=== PATIENT | female | born 1965 | race Two or more races ===

== ENCOUNTER → 2016-11-28 | Outpatient (CLI) | payer BC ==
--- NOTE | ~2016-11-28 | US85 ---
[facility] A Service of [facility] / [facility] RADIOLOGY TEXT RESULTS PATIENT: JEFFERY BRAY LOCATION: SNIV : 67 UNIT #: [id number] AGE: [address]: PEG FLANNERY APRN SEX: F ORDER DR: [id number] [address] [address] [id number] O MR#: [id number] Acc #: [id number] NAME: JEFFERY BRAY : 1965 SEX: F STUDY DATE/TIME: 11/28/2016 10:54 UNIT: SNIV ROOM: STUDY DESCRIPTION: [facility] Attending Physician: Rochelle Flannery M.D. Referring Physician: Rochelle Flannery M.D. Ordering Physician: Rochelle Flannery M.D. Primary Care Physician: Rochelle Flannery M.D. MEDICAL IMAGING REPORT This report is preliminary unless electronic signature is present. EXAM Left lower extremity venous duplex, 11/28/2016. HISTORY Left lower extremity pain and edema for 6 days. Evaluate for deep vein thrombosis. TECHNIQUE Garcia-scale images of the left lower extremity were obtained, as well as Doppler waveform, spectral analysis, and color flow Doppler imaging. FINDINGS There is normal blood flow and compressibility in the left common femoral vein, deep femoral vein, superficial femoral vein, and popliteal vein. Normal blood flow and compressibility is seen in the left calf veins. There is a 4.3-cm cystic lesion in the left popliteal fossa characteristic of a Milton's cyst. IMPRESSION 1. No evidence of deep vein thrombosis within the left lower extremity. 2. 4.3-cm cystic lesion in the left popliteal fossa characteristic of a Milton's cyst. Dictated by... Christiano Ramirez M.D. THIS IS AN ELECTRONICALLY VERIFIED REPORT Christiano Ramirez M.D. at 11/28/2016 5:05 PM PELON/daniela TD: 11/28/2016 12:50 STS. [facility] A Service of [facility] / [facility] RADIOLOGY TEXT RESULTS PATIENT: JEFFERY BRAY LOCATION: SN : 67 UNIT #: [id number] AGE: [address]: PEG FLANNERY APRN SEX: F ORDER DR: DALJIT #: [id number] MEDICAL IMAGING REPORT Page 1 of 1
== END | disposition home or self-care (01) ==
LOC: SNIV 10:46
DX: M79.662 Pain in left lower leg (principal); M79.89 Other specified soft tissue disorders; R23.8 Other skin changes
CPT/HCPCS: 93971